=== PATIENT | male | born 2000 | race Two or more races ===

== ENCOUNTER 2023-12-24 10:59 | Emergency (ER) | payer OTHER ==
[~2023-12-24] VITALS: Ht 182.9 cm; Wt 70.3 kg
[2023-12-24 11:12] VITALS: TEMP 98.2
[2023-12-24] MEDS ORDERED: IV NS 0.9% 250 ML IV ONE (11:50)
[2023-12-24] MEDS ORDERED: IOHEXOL-350 100 ML VIAL IV ONE (11:50)
[2023-12-24] MEDS ORDERED: diphenhydrAMINE HCL 50 MG/ML VIAL ONE (12:19)
[2023-12-24] MEDS ORDERED: METOCLOPRAMIDE HCL 10 MG/2 ML VIAL ONE (12:19)
[2023-12-24] MEDS ORDERED: ACETAMINOPHEN 325 MG TABLET ONE (12:19)
[2023-12-24] MEDS: ACETAMINOPHEN 325 MG TABLET PO ONE (12:51)
[2023-12-24] MEDS: IV NS 0.9% 1,000 ML BAG IV ONE (12:52)
[2023-12-24] MEDS: diphenhydrAMINE HCL 50 MG/ML VIAL IV ONE (12:53)
[2023-12-24] MEDS: METOCLOPRAMIDE HCL 10 MG/2 ML VIAL IV ONE (12:55)
[2023-12-24] MEDS ORDERED: SULFAMETH/TRIMETH 800/160 MG 1 UDTAB TABLET PO ONE (15:30)
[2023-12-24 19:18] VITALS: BP 115/65; O2SAT 96
[2023-12-24 19:50] LABS: BASOPHILS % (AUTO) 0.6 % (0.0-2.0); EOSINOPHILS # (AUTO) 0.1 K/uL (0.0-0.7); EOSINOPHILS % (AUTO) 1.3 % (0.0-6.0); HEMATOCRIT 43 % (39-51); HEMOGLOBIN 15.1 g/dL (13.5-17.5); LYMPHOCYTES # (AUTO) 1.8 K/uL (0.8-4.8); LYMPHOCYTES % (AUTO) 33.8 % (20.0-44.0); MEAN CORPUSCULAR HEMOGLOBIN 32 PG (26.0-33.0); MEAN CORPUSCULAR HGB CONC 35 g/dl (31.0-36.0); MEAN CORPUSCULAR VOLUME 90 fL (80-96); MONOCYTES # (AUTO) 0.4 K/uL (0.1-1.30); MONOCYTES % (AUTO) 7.8 % (2.0-12.0); NEUTROPHILS % (AUTO) 56.5 % (43.0-81.0); PLATELET COUNT (AUTO) 215 K/uL (150-450); RED BLOOD CELL COUNT(AUTO) 4.74 MIL/uL (4.5-6.0); WHITE BLOOD COUNT (AUTO) 5.3 K/uL (4.3-11.0)
[2023-12-24 20:09] LABS: CALCIUM, SERUM 8.7 mg/dL (8.5-10.1); CREATININE 0.9 mg/dL (0.6-1.3); POTASSIUM 3.2 mmol/L (3.5-5.1)
[2023-12-24 20:10] LABS: INR 1.18 (0.91-1.10); PARTIAL THROMBOPLASTIN TIME 25.4 SEC (24.3-34.3); PROTHROMBIN TIME 12.1 SECS (9.2-11.1)
== END 2023-12-24 21:06 | disposition short-term general hospital (02) ==
LOC: ER 11:06
DX: R51.9 Headache, unspecified (principal); Q89.8 Other specified congenital malformations; Z86.73 Personal history of transient ischemic attack (TIA), and cerebral infarction without residual deficits; Z87.39 Personal history of other diseases of the musculoskeletal system and connective tissue; V43.52XA Car driver injured in collision with other type car in traffic accident, initial encounter; Y93.89 Activity, other specified; Y92.488 Other paved roadways as the place of occurrence of the external cause; Y99.8 Other external cause status
CPT/HCPCS: 99285; 70498; 96374; 96361; 96375; 70496; 85025; 80048; 36415; 85730; 70450; J1200; J2765; J7030; J7050; Q9967